=== PATIENT | female | born 1945 | race Caucasian/White ===

== ENCOUNTER 2025-06-29 07:49 | Day surgery (SDC) | payer MEDICARE, OTHER ==
[2025-06-29] MEDS ORDERED: fentaNYL 100 MCG/2 ML SDV IV ONE (07:50)
[2025-06-29] MEDS ORDERED: Midazolam 1 MG/ML 2 ML SDV IV ONE (07:50)
[2025-06-29] MEDS ORDERED: Sodium Chloride 0.9% 10 ML Syringe FLUSH PRN (08:00)
[2025-06-29] MEDS: Lactated Ringers 1,000 ML IV SCH (08:57)
[2025-06-29] MEDS: acetaZOLAMIDE 500 MG Cap.ER PO ONE (10:06)
== END 2025-06-29 10:37 | disposition home or self-care (01) ==
LOC: FB.SDS 07:49
PROVIDERS: ATTEND Ophthalmology
DX: H25.813 Combined forms of age-related cataract, bilateral (principal); H26.9 Unspecified cataract; F41.8 Other specified anxiety disorders; E78.5 Hyperlipidemia, unspecified; Z88.2 Allergy status to sulfonamides; Z88.8 Allergy status to other drugs, medicaments and biological substances; Z79.899 Other long term (current) drug therapy
CPT/HCPCS: 00142; 66984; 99100; A9270; J2250; J3010; J7120; V2632

== ENCOUNTER 2025-07-13 08:15 | Day surgery (SDC) | payer MEDICARE, OTHER ==
[~2025-07-13 08:15] MED LIST: Sodium Chloride 0.9% 10 ML Syringe FLUSH PRN
[2025-07-13] MEDS ORDERED: Midazolam 1 MG/ML 2 ML SDV IV ONE (08:16)
[2025-07-13] MEDS ORDERED: fentaNYL 100 MCG/2 ML SDV IV ONE (08:16)
[2025-07-13] MEDS: Lactated Ringers 1,000 ML IV PRN (08:55)
[2025-07-13] MEDS: acetaZOLAMIDE 500 MG Cap.ER PO ONE (10:24)
== END 2025-07-13 10:48 | disposition home or self-care (01) ==
LOC: FB.SDS 08:15
PROVIDERS: ATTEND Ophthalmology
DX: H25.812 Combined forms of age-related cataract, left eye (principal); Z88.2 Allergy status to sulfonamides; Z88.8 Allergy status to other drugs, medicaments and biological substances; Z86.16 Personal history of COVID-19; Z79.82 Long term (current) use of aspirin; Z79.899 Other long term (current) drug therapy
CPT/HCPCS: 00142; 66984; 99100; A9270; J2250; J3010; J7120; V2632